=== PATIENT | male | born 1950 | race Hispanic/Latino ===

== ENCOUNTER 2019-11-20 15:19 | Inpatient (IN) | payer MEDICARE, OTHER ==
[2019-11-20] MEDS ORDERED: Ondansetron ODT 4 MG TAB PO PRN (18:46)
--- NOTE | 2019-11-20 19:15 | HP ---
HISTORY OF PRESENT ILLNESS: The patient is a 69-year-old male with long history of poorly-controlled diabetes, hypertension, hyperlipidemia, who has had a left BKA recently because of poorly healing diabetic ulcer with Staphylococcus bacteremia. He has been found to have methicillin-sensitive Staphylococcus, has been on cefazolin 2 g IV piggyback q.8 hours since surgery with last dose to be on November 23. The patient did well with therapy and was discharged to home to finish his course of IV Ancef, but was unable to do this and therefore was placed in the skilled unit for continued therapy and to finish his course of IV Ancef. PAST MEDICAL HISTORY: Positive as mentioned above. Type 2 diabetes, hypertension, hyperlipidemia, peripheral vascular disease. ALLERGIES: HE HAS HISTORY OF ALLERGY TO CLINDAMYCIN. MEDICATIONS: Include; 1. Levemir 25 units subcu daily. 2. Lisinopril 20 mg daily. 3. Gabapentin 300 mg three times daily. 4. MiraLAX 17 g daily. 5. Tramadol as needed. FAMILY MEDICAL HISTORY: Noncontributory. SOCIAL HISTORY: He is a nonsmoker, nondrinker. Lives with his family. REVIEW OF SYSTEMS: HEENT: He denies any headaches, dizziness, change in vision or hearing, or dysphagia. PULMONARY: Denies cough, sputum production, pneumonia, asthma, or tuberculosis. CARDIOVASCULAR: Denies chest pain, orthopnea, paroxysmal nocturnal dyspnea, or edema. GASTROINTESTINAL: Denies nausea, vomiting, diarrhea, constipation, or abdominal pain. GENITOURINARY: Denies dysuria, hematuria, or nocturia. MUSCULOSKELETAL: Denies extremity pain or swelling. NEUROLOGIC: Has numbness and tingling in his right foot with some pain. Left foot shows a well-healed left BKA, but with some . PHYSICAL EXAMINATION: GENERAL: The patient is an elderly male, in no acute distress. Oriented x3 and cooperative. VITAL SIGNS: Show him to have blood pressure 148/95, temperature is 98, pulse 88, respirations 18, O2 saturations 93% on room air. HEENT: There are dental caries. Oral mucous membranes are well hydrated. Pupils equal, round, and reactive to light and accommodation. NECK: Supple. No nodes or masses. LUNGS: Clear to auscultation and percussion with no rales, rhonchi, rubs or wheezes. CARDIAC: Showed regular rhythm with no gallops or murmurs. ABDOMEN: Soft and nontender with no masses or organomegaly. Good bowel sounds. SKIN/EXTREMITIES: Show left BKA healing well. Right foot shows good pedal pulses. Some healing superficial abrasions. LABORATORY DATA: Most recent laboratories showed a white count of 13,000, hemoglobin 7, hematocrit of 23. Creatinine 0.86, BUN 36. ASSESSMENT: 1. Status post methicillin-sensitive bacteremia on IV Ancef 2 g q.8 until November 25. 2. Peripheral vascular disease, status post left BKA with healing wound on tramadol for pain. 3. Degenerative disk disease, on Neurontin and tramadol. 4. Type 2 diabetes with only fair control with Accu-Cheks up to 200. 5. Hypertension, controlled to goal. PLAN: Continue medications of Ancef 2 g q.8, gabapentin 300 three times daily, Levemir 25 units daily, mild sliding scale, lisinopril 20 mg daily, tramadol 50 mg four times daily, MiraLAX 17 g daily. Continue wound care. Continue PT/OT. Job ID: [id number]
[2019-11-20] MEDS: Gabapentin 300 MG CAP PO SCH (21:15)
[2019-11-20] MEDS: CEFAZOLIN 1 GM in Sodium Chloride 0.9% 100 ML IVPB SCH ×2 (21:15→21:55)
[2019-11-20] MEDS ORDERED: Dextrose 50% Abboject 50 ML SYRINGE IVP PRN (21:18)
[2019-11-20] MEDS ORDERED: Dextrose 5% in Water 1,000 ML IV PRN (21:18)
[2019-11-20] MEDS: HumaLOG 300 UNITS/3 ML VIAL SC PRN (21:37)
[2019-11-20] MEDS: traMADol HCl 50 MG TAB PO PRN (21:39)
[2019-11-20] MEDS ORDERED: CEFAZOLIN 2 GM IVPB SCH (22:00)
[2019-11-21] MEDS: CEFAZOLIN 1 GM in Sodium Chloride 0.9% 100 ML IVPB SCH ×6 (05:09→22:07)
[2019-11-21] MEDS: HumaLOG 300 UNITS/3 ML VIAL SC PRN ×3 (05:12→18:16)
[2019-11-21 05:40] LABS: #Lymphocytes 1.2 thou/uL (1.20-3.40); #Monocytes 0.5 thou/uL (0.11-0.59); #Neutrophils 4.4 thou/uL (1.40-6.50); %Basophils 0.4 % (0.0-1.0); %Eosinophils 0.6 % (0.0-10.0); %Monocytes 8.1 % (0.0-10.0); %Neutrophils 71.9 % (42.0-75.0); Hemoglobin 8.3 g/dL (14.0-18.0); Mean Corpuscular HGB CONC 31.1 g/dL (32.0-36.0); Mean Corpuscular Hemoglobin 25.7 pg (27.0-31.0); Mean Corpuscular Volume 82.7 fL (78.0-98.0); Mean Platelet Volume 5.1 fL (7.4-10.4); Platelet Count 402 thou/uL (130-400); RBC Distribution Width 16.3 % (11.5-14.5); Red Blood Cell (RBC) Count 3.23 mill/uL (4.70-6.10); White Blood Cell (WBC) Count 6.1 thou/uL (4.8-10.8)
[2019-11-21 05:57] LABS: ALT (SGPT) Less than 6 U/L (8-55); AST (SGOT) 17 U/L (5-34); Albumin 2.4 g/dL (3.4-4.8); Alkaline Phosphatase 94 U/L (40-110); Anion Gap 12 mmol/L (10-20); BUN (Urea Nitrogen) 17 mg/dL (8.4-25.7); Bilirubin, Total 0.4 mg/dL (0.2-1.2); Calc. Creatinine Clearance 87 mL/min (70-130); Calcium 8.6 mg/dL (7.8-10.44); Carbon Dioxide 28 mmol/L (23-31); Chloride 100 mmol/L (98-107); Estimated GFR-MDRD Greater than 90; Globulin 5.1 g/dL (2.4-3.5); Glucose 151 mg/dL (80-115); Potassium 4.6 mmol/L (3.5-5.1); Protein, Total 7.5 g/dL (5.8-8.1); Sodium 135 mmol/L (136-145)
[2019-11-21] MEDS ORDERED: Lantus 1000 UNITS/10 ML VIAL SC SCH (09:00)
[2019-11-21] MEDS: Amlodipine 5 MG TAB PO SCH (09:17)
[2019-11-21] MEDS: Gabapentin 300 MG CAP PO SCH ×3 (09:18→21:28)
[2019-11-21] MEDS: Lisinopril 20 MG TAB PO SCH (09:18)
[2019-11-21] MEDS: Tamsulosin HCl 0.4 MG CAP PO SCH (09:19)
[2019-11-21] MEDS: Lidocaine 5% Patch TD SCH (09:19)
[2019-11-21] MEDS: traMADol HCl 50 MG TAB PO PRN (21:28)
[2019-11-21] MEDS: Lidocaine Patch Removal TOP SCH (21:31)
[2019-11-22] MEDS: HumaLOG 300 UNITS/3 ML VIAL SC PRN ×4 (05:08→21:29)
[2019-11-22] MEDS: CEFAZOLIN 1 GM in Sodium Chloride 0.9% 100 ML IVPB SCH ×6 (05:10→21:33)
[2019-11-22] MEDS: Lisinopril 20 MG TAB PO SCH (09:47)
[2019-11-22] MEDS: Tamsulosin HCl 0.4 MG CAP PO SCH (09:47)
[2019-11-22] MEDS: Amlodipine 5 MG TAB PO SCH (09:48)
[2019-11-22] MEDS: Gabapentin 300 MG CAP PO SCH ×3 (09:48→20:20)
[2019-11-22] MEDS: Lidocaine 5% Patch TD SCH (09:49)
[2019-11-22] MEDS: Lantus 1000 UNITS/10 ML VIAL SC SCH (09:49)
[2019-11-22] MEDS: Lidocaine Patch Removal TOP SCH (20:20)
[2019-11-23] MEDS: CEFAZOLIN 1 GM in Sodium Chloride 0.9% 100 ML IVPB SCH ×7 (05:51→21:17)
[2019-11-23] MEDS: traMADol HCl 50 MG TAB PO PRN (05:57)
[2019-11-23] MEDS: Amlodipine 5 MG TAB PO SCH (08:35)
[2019-11-23] MEDS: Gabapentin 300 MG CAP PO SCH ×3 (08:35→21:12)
[2019-11-23] MEDS: Lidocaine 5% Patch TD SCH (08:35)
[2019-11-23] MEDS: Tamsulosin HCl 0.4 MG CAP PO SCH (08:35)
[2019-11-23] MEDS: Lisinopril 20 MG TAB PO SCH (08:35)
[2019-11-23] MEDS: Lantus 1000 UNITS/10 ML VIAL SC SCH (08:36)
[2019-11-23] MEDS: HumaLOG 300 UNITS/3 ML VIAL SC PRN ×3 (11:45→21:56)
[2019-11-23] MEDS: Lidocaine Patch Removal TOP SCH (21:12)
[2019-11-24] MEDS: traMADol HCl 50 MG TAB PO PRN ×2 (04:13→13:40)
[2019-11-24] MEDS: CEFAZOLIN 1 GM in Sodium Chloride 0.9% 100 ML IVPB SCH ×6 (05:46→21:27)
[2019-11-24] MEDS: Amlodipine 5 MG TAB PO SCH (08:18)
[2019-11-24] MEDS: Gabapentin 300 MG CAP PO SCH ×3 (08:19→21:25)
[2019-11-24] MEDS: Lidocaine 5% Patch TD SCH (08:20)
[2019-11-24] MEDS: Lisinopril 20 MG TAB PO SCH (08:20)
[2019-11-24] MEDS: Tamsulosin HCl 0.4 MG CAP PO SCH (08:21)
[2019-11-24] MEDS ORDERED: Lantus 1000 UNITS/10 ML VIAL SC SCH (09:00)
[2019-11-24] MEDS: HumaLOG 300 UNITS/3 ML VIAL SC PRN ×3 (11:41→22:59)
--- NOTE | 2019-11-24 19:03 | PRG ---
DATE OF SERVICE: 11/23/2019 SUBJECTIVE: Patient feels well, sleeping in bed with no complaints, pain in his leg, shortness of breath, chest pain. OBJECTIVE: Shows Accu-Chek still elevated to greater than 300, but down to 130 in the morning. LUNGS: Clear. CARDIAC: Regular rhythm. ABDOMEN: Soft, nontender. SKIN/EXTREMITIES: Display healed left BKA. ASSESSMENT: 1. Healed left cqnxx-hgi-pjga amputation. We will remove nick today. 2. bacteremia. Tolerating Ancef 2 g every 8 hours until November 25. 3. Poorly controlled diabetes and we will titrate to control to goal with no hypoglycemia. Job ID: [id number]
--- NOTE | 2019-11-24 19:19 | PRG ---
DATE OF SERVICE: 11/22/2019 SUBJECTIVE: Patient is a 69-year-old white male with; 1. A history of methicillin-sensitive bacteremia, on IV Ancef until November 25 with inability to maintain this at home and therefore admitted to the skilled unit for continued antibiotics. 2. He has a history also of peripheral vascular disease with a healing wound on his left BKA with nick to be removed later this week. 3. Degenerative disk disease, chronic; on Neurontin and tramadol, stable. 4. Type 2 diabetes, only fair control, on Levemir 25 units daily and a mild sliding scale. OBJECTIVE: VITAL SIGNS: Show him to have temperature 99.5, pulse 91, respirations 20, O2 sats 94% on room air, blood pressure 115/60. SKIN/EXTREMITIES: Left BKA healing well. LUNGS: Clear. CARDIAC: Showed regular rhythm. LABORATORY DATA: Show Accu-Cheks elevated to greater than 200. ASSESSMENT: 1. Resolving methicillin-susceptible Staphylococcus aureus bacteremia, on IV Ancef until November 25. 2. Resolving left eifxw-xjs-ytox amputation with nick to be removed later this weekend. 3. Poorly controlled diabetes, on Lantus and we will titrate up from 15 units daily with sliding scale to control to goal as patient has had some hypoglycemia recently. Job ID: [id number]
[2019-11-24] MEDS: Lidocaine Patch Removal TOP SCH (21:30)
[2019-11-25] MEDS: CEFAZOLIN 1 GM in Sodium Chloride 0.9% 100 ML IVPB SCH ×6 (05:12→21:39)
[2019-11-25] MEDS: HumaLOG 300 UNITS/3 ML VIAL SC PRN ×2 (06:00→12:57)
--- NOTE | 2019-11-25 08:48 | PRG ---
DATE OF SERVICE: 11/25/2019 SUBJECTIVE: The patient feels well, lying in bed. He is approaching the end of his antibiotics on November 25 and has asked if he is ready to be discharged home, cooperating with therapy. He states in the affirmative. OBJECTIVE: VITAL SIGNS: Show his blood pressure to be 124/56, pulse 82, O2 saturations 95% on room air, blood pressure 117/64. LUNGS: Clear. CARDIAC: Shows regular rhythm. EXTREMITIES: Left BKA is healed well with nick removed. LABORATORY DATA: Showed Accu-Cheks still elevated to 240 in the afternoon, but down to 130 in the morning, and have increased Lantus to 20 units and we will monitor as he was taking 25 units previously before he became hypoglycemic. ASSESSMENT: 1. Resolving MSSA bacteremia, to finish IV Rocephin on November 25. 2. Healed left bmdxg-kpl-vblt amputation and will follow up with surgeon as an outpatient. 3. Poorly controlled diabetes with increasing control with increasing Lantus and we will increase to 20 units today and possibly 22 and 25 by discharge as he is not having any further hypoglycemia. Job ID: [id number]
[2019-11-25] MEDS ORDERED: Lantus 1000 UNITS/10 ML VIAL SC SCH ×2 (09:00)
[2019-11-25] MEDS: Amlodipine 5 MG TAB PO SCH (09:25)
[2019-11-25] MEDS: metFORMIN 500 MG TAB PO SCH (09:25)
[2019-11-25] MEDS: Gabapentin 300 MG CAP PO SCH ×3 (09:25→21:39)
[2019-11-25] MEDS: Lidocaine 5% Patch TD SCH (09:26)
[2019-11-25] MEDS: Lisinopril 20 MG TAB PO SCH (09:26)
[2019-11-25] MEDS: Tamsulosin HCl 0.4 MG CAP PO SCH (09:27)
[2019-11-25] MEDS: traMADol HCl 50 MG TAB PO PRN (09:31)
[2019-11-25] MEDS ORDERED: Sodium Chloride 0.9% 10 ML ONE (14:34)
[2019-11-25] MEDS: Lidocaine Patch Removal TOP SCH (21:41)
[2019-11-26] MEDS: CEFAZOLIN 1 GM in Sodium Chloride 0.9% 100 ML IVPB SCH ×6 (05:36→21:31)
[2019-11-26] MEDS: Lisinopril 20 MG TAB PO SCH (08:20)
[2019-11-26] MEDS: Amlodipine 5 MG TAB PO SCH (08:20)
[2019-11-26] MEDS: Lidocaine 5% Patch TD SCH (08:20)
[2019-11-26] MEDS: metFORMIN 500 MG TAB PO SCH (08:21)
[2019-11-26] MEDS: Gabapentin 300 MG CAP PO SCH ×3 (08:21→20:02)
[2019-11-26] MEDS: Tamsulosin HCl 0.4 MG CAP PO SCH (08:21)
[2019-11-26] MEDS: traMADol HCl 50 MG TAB PO PRN (08:23)
[2019-11-26] MEDS: Lantus 1000 UNITS/10 ML VIAL SC SCH (08:25)
[2019-11-26] MEDS: HumaLOG 300 UNITS/3 ML VIAL SC PRN ×2 (17:18→21:29)
[2019-11-26] MEDS: Lidocaine Patch Removal TOP SCH (20:02)
[2019-11-27] MEDS: CEFAZOLIN 1 GM in Sodium Chloride 0.9% 100 ML IVPB SCH ×2 (05:28→05:30)
[2019-11-27] MEDS: Lantus 1000 UNITS/10 ML VIAL SC SCH (08:46)
[2019-11-27] MEDS: Lidocaine 5% Patch TD SCH (08:46)
[2019-11-27] MEDS: Amlodipine 5 MG TAB PO SCH (08:47)
[2019-11-27] MEDS: Lisinopril 20 MG TAB PO SCH (08:47)
[2019-11-27] MEDS: Tamsulosin HCl 0.4 MG CAP PO SCH (08:47)
--- NOTE | 2019-11-27 08:47 | PRG ---
DATE OF SERVICE: 11/26/2019 SUBJECTIVE: The patient feels well, lying in bed. He has finished his antibiotics today and is ready for more therapy and wishes to continue on therapy. He does not wish to be discharged home at this time. Therapists have agreed that he is improving and will therefore continue on PT/OT. OBJECTIVE: VITAL SIGNS: Temperature is 97, pulse 89, respirations 20, O2 sats 98% on room air, and blood pressure 116/59. LABORATORY DATA: Accu-Cheks still showing elevations of 201 to 238 in the afternoon, although down to 91 in the morning on Levemir 25 units subcu daily. ASSESSMENT: 1. Resolving methicillin-susceptible Staphylococcus aureus bacteremia. 2. Slowly improving diabetic control. 3. Severe deconditioning. 4. Peripheral vascular disease, status post left below knee amputation. PLAN: 1. Continue PT/OT. 2. Finish Ancef today. 3. Start linagliptin tomorrow to help with postprandial diabetes control. Job ID: [id number]
[2019-11-27] MEDS: metFORMIN 500 MG TAB PO SCH (08:48)
[2019-11-27] MEDS: Gabapentin 300 MG CAP PO SCH ×3 (08:48→21:22)
[2019-11-27] MEDS: Alogliptin 25 MG TAB PO SCH (08:50)
[2019-11-27] MEDS: HumaLOG 300 UNITS/3 ML VIAL SC PRN (12:38)
[2019-11-27] MEDS: Lidocaine Patch Removal TOP SCH (21:22)
[2019-11-27] MEDS: traMADol HCl 50 MG TAB PO PRN (23:21)
[2019-11-28] MEDS ORDERED: Amlodipine 5 MG TAB ONE (08:46)
[2019-11-28] MEDS: Alogliptin 25 MG TAB PO SCH (09:47)
[2019-11-28] MEDS: Gabapentin 300 MG CAP PO SCH ×3 (09:48→20:55)
[2019-11-28] MEDS: Tamsulosin HCl 0.4 MG CAP PO SCH (09:48)
[2019-11-28] MEDS: Amlodipine 5 MG TAB PO SCH (09:48)
[2019-11-28] MEDS: metFORMIN 500 MG TAB PO SCH (09:48)
[2019-11-28] MEDS: Lisinopril 20 MG TAB PO SCH (09:49)
[2019-11-28] MEDS: Lantus 1000 UNITS/10 ML VIAL SC SCH (09:49)
[2019-11-28] MEDS: Lidocaine 5% Patch TD SCH (09:49)
--- NOTE | 2019-11-28 18:47 | PRG ---
DATE OF SERVICE: 11/28/2019 SUBJECTIVE: The patient was transferring from the chair to the bed, when he slipped, leaning back and required assistance with two people to get back in the bed. He had done much better this morning with transfers, but apparently became impulsive this afternoon. OBJECTIVE: VITAL SIGNS: Show Accu-Cheks controlled to goal at 79 to 128. Blood pressure is 105/57, temperature is 98, pulse 81, respirations 18, O2 sats 96% on room air. LUNGS: Clear. CARDIAC: Showed regular rhythm. ABDOMEN: Soft and nontender. SKIN AND EXTREMITIES: Display no edema, clubbing, or cyanosis, healed left BKA. ASSESSMENT: 1. Resolving left nkouc-sex-edtb amputation secondary to severe peripheral vascular disease. 2. Type 2 diabetes, controlled to goal. 3. Deconditioning, improved, was still not able to maintain ADLs. 4. Resolved methicillin-sensitive Staphylococcus aureus bacteremia, off medications. PLAN: 1. Continue PT/OT. 2. Continue Accu-Cheks to monitor and titrate and control diabetes. 3. Continue pain relief as needed. Job ID: [id number]
--- NOTE | 2019-11-28 18:50 | PRG ---
DATE OF SERVICE: 11/27/2019 SUBJECTIVE: The patient feels well. He has finished antibiotics. No fever or chills. Left BKA is healing well, however, he is still concerned maintain ADLs, and Physical and Occupational Therapy agrees that he needs more therapy. OBJECTIVE: VITAL SIGNS: Temperature 98.3, pulse 93, respirations 18, O2 saturations 97% on room air, blood pressure 118/58. LUNGS: Clear. CARDIAC: Showed regular rhythm. ABDOMEN: Soft, nontender. Left BKA healed well. SKIN/EXTREMITIES: Show no edema, clubbing, or cyanosis. ASSESSMENT AND PLAN: 1. Resolved methicillin-sensitive Staphylococcus aureus bacteremia. 2. Severe deconditioning, improving. 3. Peripheral vascular disease, status post left BKA. 4. Type 2 diabetes, controlled to goal. Job ID: [id number]
[2019-11-28] MEDS: Lidocaine Patch Removal TOP SCH (20:55)
--- NOTE | 2019-11-29 07:17 | PRG ---
DATE OF SERVICE: 11/29/2019 SUBJECTIVE: Mr. Rangel is resting in bed. He is eating a snack, since he felt like his blood sugar was low. He is happy with his progress. OBJECTIVE: VITAL SIGNS: He is afebrile. Heart rate 85, respirations 20, oxygen saturation 94% on room air, and blood pressure 124/81. CARDIOVASCULAR SYSTEM: S1, S2 plus. RESPIRATORY SYSTEM: Normal vestibular breath sounds. ABDOMEN: Soft, nontender. Bowel sounds heard in all quadrants. EXTREMITIES: Without cyanosis or clubbing. Left BKA. IMPRESSION: 1. Diabetes mellitus, type 2. 2. Left dfodi-uqe-atnb amputation due to severe peripheral vascular disease. 3. Improving deconditioning. 4. Resolved methicillin-resistant Staphylococcus aureus bacteremia. 5. Hypertension. 6. Peripheral neuropathy. PLAN: 1. Continue current medications. 2. 1800-calorie heart healthy ADA diet. 3. Accu-Cheks with sliding scale coverage. 4. Stump care. 5. DVT and stress ulcer prophylaxis. 6. Decubitus precautions. 7. Physical therapy. 8. Routine laboratory values. Job ID: [id number]
[2019-11-29] MEDS: Alogliptin 25 MG TAB PO SCH (08:42)
[2019-11-29] MEDS: metFORMIN 500 MG TAB PO SCH (08:42)
[2019-11-29] MEDS: Gabapentin 300 MG CAP PO SCH ×3 (08:43→20:43)
[2019-11-29] MEDS: Amlodipine 5 MG TAB PO SCH (08:43)
[2019-11-29] MEDS: Lantus 1000 UNITS/10 ML VIAL SC SCH (08:43)
[2019-11-29] MEDS: Lidocaine 5% Patch TD SCH (08:43)
[2019-11-29] MEDS: Tamsulosin HCl 0.4 MG CAP PO SCH (08:44)
[2019-11-29] MEDS: Lisinopril 20 MG TAB PO SCH (08:44)
[2019-11-29] MEDS: Lidocaine Patch Removal TOP SCH (20:43)
[2019-11-30 05:20] VITALS: BMI 21.7
[2019-11-30] MEDS: Amlodipine 5 MG TAB PO SCH (08:33)
[2019-11-30] MEDS: Gabapentin 300 MG CAP PO SCH ×3 (08:33→21:18)
[2019-11-30] MEDS: Lidocaine 5% Patch TD SCH (08:33)
[2019-11-30] MEDS: metFORMIN 500 MG TAB PO SCH (08:34)
[2019-11-30] MEDS: Lantus 1000 UNITS/10 ML VIAL SC SCH (08:34)
[2019-11-30] MEDS: Alogliptin 25 MG TAB PO SCH (08:34)
[2019-11-30] MEDS: Tamsulosin HCl 0.4 MG CAP PO SCH (08:35)
[2019-11-30] MEDS: Lisinopril 20 MG TAB PO SCH (08:35)
--- NOTE | 2019-11-30 13:54 | PRG ---
DATE OF SERVICE: 11/30/2019 SUBJECTIVE: Mr. Rangel is resting in bed. He is happy with his progress. He denies any concerns or questions. No family at bedside. OBJECTIVE: VITAL SIGNS: He is afebrile. Heart rate 88, respirations 20, oxygen saturation 95% on room air, blood pressure 128/71. CARDIOVASCULAR: S1 and S2 plus. RESPIRATORY: Normal vesicular breath sounds. ABDOMEN: Soft and nontender. Bowel sounds heard in all quadrants. EXTREMITIES: Without cyanosis or clubbing. Left BKA. CENTRAL NERVOUS SYSTEM: Improving deconditioning. IMPRESSION: 1. Diabetes mellitus, type 2. 2. Left below-knee amputation. 3. Deconditioning. 4. Hypertension. 5. Peripheral neuropathy. PLAN: 1. Continue current medications. 2. 1800-calorie heart healthy ADA diet. 3. Accu-Cheks with sliding scale coverage. 4. Stump care. 5. DVT and stress ulcer prophylaxis. 6. Decubitus precaution. 7. Physical therapy. 8. Routine laboratory values. 9. Dr. Milena carmona. Job ID: [id number]
[2019-11-30] MEDS: Lidocaine Patch Removal TOP SCH (21:18)
[2019-12-01] MEDS: Lantus 1000 UNITS/10 ML VIAL SC SCH (08:34)
[2019-12-01] MEDS: Tamsulosin HCl 0.4 MG CAP PO SCH (08:35)
[2019-12-01] MEDS: metFORMIN 500 MG TAB PO SCH (08:35)
[2019-12-01] MEDS: Alogliptin 25 MG TAB PO SCH (08:35)
[2019-12-01] MEDS: Gabapentin 300 MG CAP PO SCH ×3 (08:35→20:38)
[2019-12-01] MEDS: Amlodipine 5 MG TAB PO SCH (08:35)
[2019-12-01] MEDS: Lisinopril 20 MG TAB PO SCH (08:35)
[2019-12-01] MEDS: Lidocaine 5% Patch TD SCH (08:35)
[2019-12-01] MEDS: HumaLOG 300 UNITS/3 ML VIAL SC PRN ×3 (12:34→21:35)
[2019-12-01] MEDS: traMADol HCl 50 MG TAB PO PRN (15:40)
[2019-12-01] MEDS: Lidocaine Patch Removal TOP SCH (20:39)
--- NOTE | 2019-12-02 06:41 | PRG ---
DATE OF SERVICE: 12/01/2019 SUBJECTIVE: The patient is lying in the bed, feels well. He states that he has been cooperating with therapy, having minimal pain in his legs, still very weak. OBJECTIVE: VITAL SIGNS: Temperature is 98.9, pulse 91, respirations 20, O2 sats 97% on room air, blood pressure is 108/65. LUNGS: Clear. CARDIAC: Showed regular rhythm. ABDOMEN: Soft and nontender. SKIN/EXTREMITIES: Display healed left BKA ASSESSMENT: 1. Resolving left below knee amputation. 2. Severe peripheral vascular disease, stable. 3. Type-2 diabetes, controlled to goal. 4. Severe deconditioning. 5. Hypertension, controlled to goal. PLAN: 1. Continue PT, OT. 2. Discuss discharge planning with PT, OT. 3. Continue Accu-Cheks to monitor and titrate and control diabetes. 4. Continue to monitor vital signs with therapy. 5. Discontinue PICC line. Job ID: [id number]
[2019-12-02] MEDS: Alogliptin 25 MG TAB PO SCH (08:26)
[2019-12-02] MEDS: Tamsulosin HCl 0.4 MG CAP PO SCH (08:26)
[2019-12-02] MEDS: Amlodipine 5 MG TAB PO SCH (08:26)
[2019-12-02] MEDS: Lisinopril 20 MG TAB PO SCH (08:26)
[2019-12-02] MEDS: metFORMIN 500 MG TAB PO SCH (08:26)
[2019-12-02] MEDS: Lantus 1000 UNITS/10 ML VIAL SC SCH (08:27)
[2019-12-02] MEDS: Gabapentin 300 MG CAP PO SCH ×3 (08:27→20:48)
[2019-12-02] MEDS: Lidocaine 5% Patch TD SCH (08:27)
[2019-12-02] MEDS: traMADol HCl 50 MG TAB PO PRN (08:28)
[2019-12-02] MEDS: HumaLOG 300 UNITS/3 ML VIAL SC PRN ×2 (12:02→17:34)
[2019-12-02] MEDS: Lidocaine Patch Removal TOP SCH (21:52)
--- NOTE | 2019-12-03 06:57 | PRG ---
DATE OF SERVICE: 12/02/2019 SUBJECTIVE: The patient feels well, lying in bed, but is working with therapy, was still having significant pain in his hip with spasms, right knee pain with therapy. Occupational Therapy also states he has some problems with cognition and incontinence and unaware of his incontinent state. OBJECTIVE: VITAL SIGNS: Show pulse 85, respirations 18, O2 saturations 97% on room air, blood pressure 111/61. Accu-Cheks 127 to 199. EXTREMITIES: Left BKA has healed well. LUNGS: Clear. CARDIAC: Showed regular rhythm. ASSESSMENT: 1. Resolving left BKA with MSSA bacteremia, status post full course of Ancef and no evidence of recurrence off antibiotics. 2. Persistent deconditioning, inability to maintain ADLs. Working with PT and OT and we will continue to follow with them. 3. Type 2 diabetes, controlled to goal with Accu-Cheks less than 200. 4. Some cognitive deficits and we will discuss with family about 24 hours assistance. Job ID: [id number]
[2019-12-03] MEDS: Tamsulosin HCl 0.4 MG CAP PO SCH (08:30)
[2019-12-03] MEDS: Gabapentin 300 MG CAP PO SCH ×3 (08:30→20:17)
[2019-12-03] MEDS: Alogliptin 25 MG TAB PO SCH (08:30)
[2019-12-03] MEDS: metFORMIN 500 MG TAB PO SCH (08:30)
[2019-12-03] MEDS: Amlodipine 5 MG TAB PO SCH (08:30)
[2019-12-03] MEDS: Lantus 1000 UNITS/10 ML VIAL SC SCH (08:31)
[2019-12-03] MEDS: Lidocaine 5% Patch TD SCH (08:31)
[2019-12-03] MEDS: Lisinopril 20 MG TAB PO SCH (08:31)
[2019-12-03] MEDS: HumaLOG 300 UNITS/3 ML VIAL SC PRN ×3 (12:29→21:49)
[2019-12-03] MEDS: Lidocaine Patch Removal TOP SCH (20:18)
[2019-12-03 21:07] LABS: Hemoglobin 7.1 g/dL (14.0-18.0); Mean Corpuscular HGB CONC 31.1 g/dL (32.0-36.0); Mean Corpuscular Hemoglobin 25.2 pg (27.0-31.0); Mean Corpuscular Volume 80.9 fL (78.0-98.0); Mean Platelet Volume 5.5 fL (7.4-10.4); Platelet Count 345 thou/uL (130-400); RBC Distribution Width 15.9 % (11.5-14.5); Red Blood Cell (RBC) Count 2.82 mill/uL (4.70-6.10); White Blood Cell (WBC) Count 8.9 thou/uL (4.8-10.8)
[2019-12-03 21:08] LABS: Lactic Acid 1.6 mmol/L (0.5-2.2)
[2019-12-03 21:09] LABS: Lymphocytes 10 % (21-51); Neutrophil 84 % (42-75)
[2019-12-03 21:10] LABS: Eosinophils 0 % (0-10); Monocytes 5 % (0-10)
[2019-12-03] MEDS: Acetaminophen 325 MG TAB PO PRN (21:27)
[2019-12-04] MEDS: metFORMIN 500 MG TAB PO SCH (08:26)
[2019-12-04] MEDS: Alogliptin 25 MG TAB PO SCH (08:27)
[2019-12-04] MEDS: Gabapentin 300 MG CAP PO SCH ×3 (08:27→21:28)
[2019-12-04] MEDS: Amlodipine 5 MG TAB PO SCH (08:27)
[2019-12-04] MEDS: Lantus 1000 UNITS/10 ML VIAL SC SCH (08:27)
[2019-12-04] MEDS: Lidocaine 5% Patch TD SCH (08:28)
[2019-12-04] MEDS: Tamsulosin HCl 0.4 MG CAP PO SCH (08:28)
[2019-12-04] MEDS: Lisinopril 20 MG TAB PO SCH (08:28)
[2019-12-04] MEDS ORDERED: Lidocaine 1% (PF) 30 ML VIAL ONE (09:00)
[2019-12-04] MEDS: HumaLOG 300 UNITS/3 ML VIAL SC PRN (17:03)
[2019-12-04] MEDS: Lidocaine Patch Removal TOP SCH (21:28)
[2019-12-05] MEDS: Acetaminophen 325 MG TAB PO PRN (03:52)
[2019-12-05] MEDS ORDERED: Bacteriostatic Water 30 ML VIAL FS PRN (05:41)
[2019-12-05] MEDS ORDERED: methylPREDNISolone Acetate 40 mg/ml Vial I-ARTICULR SCH (05:45)
--- NOTE | 2019-12-05 06:13 | PRG ---
DATE OF SERVICE: 12/03/2019 SUBJECTIVE: The patient feels well, lying in the bed, cooperating with therapy. He is having more problems with his right leg but no symptoms with his left BKA. He has had no fever, chills, off antibiotics. His Accu-Cheks have been controlled, but he is wishing to have more therapy prior to being discharged home. He is complaining mainly of pain in his right knee, which he is of course doing all of the weightbearing, when he transfers. OBJECTIVE: VITAL SIGNS: Shows temperature was 100.6, pulse 91, respirations 18, O2 saturations 95% on room air, and blood pressure is 115/61. EXTREMITIES: Right leg did show some erythema, decreased pedal pulse, but appears to be stable. Right knee is significantly tender. LUNGS: Clear. CARDIAC: Regular rhythm. ABDOMEN: Soft and nontender. LABORATORY DATA: Accu-Cheks have been stable, 109 to 199. Lactate has returned to normal at 1.6. ASSESSMENT: 1. Persistent pain in right leg, most likely due to severe ischemia, appears to have signs of poor circulation in right leg chronically, but does have low-grade fever. We will monitor closely. Has finished his IV antibiotics for his methicillin-sensitive bacteremia. 2. Severe degenerative joint disease of right knee and will consider steroid injection. The patient agrees. 3. Healing left below knee amputation with no evidence of infection. 4. Fair control of diabetes in the hospital with dietary and insulin compliance. 5. Some cognitive deficits making him at risk for care for himself at home alone. PLAN: 1. Continue PT/OT. 2. Discuss care with family. 3. Schedule steroid injection, right knee. 4. Continue Accu-Cheks to monitor and titrate and control diabetes. Job ID: [id number]
--- NOTE | 2019-12-05 06:47 | PRG ---
DATE OF SERVICE: 12/04/2019 SUBJECTIVE: The patient feels well with persistent pain in the right knee. No pain in the right foot or leg. He has developed a stage II decubitus on the right heel. He has been eating well, tolerating diet well, attempting to work with Therapy, and is asking about discharge if he can get some relief of pain in his knee. OBJECTIVE: Shows VITAL SIGNS: The patient has been afebrile. Temperature 98.3, pulse 89, respirations 18, O2 saturations 96% on room air, blood pressure 119/64. LUNGS: Clear. CARDIAC: Shows regular rhythm. ABDOMEN: Soft and nontender. EXTREMITIES: Right knee shows significant crepitance. No effusion. Right leg shows signs of ischemia with decreased blood flow and some atrophy of the skin, but no evidence of infection, but there is a stage II decubitus on the right heel. LABORATORY DATA: Accu-Cheks show 115 to 193. ASSESSMENT AND PLAN: 1. Fair control of diabetes. 2. Resolved methicillin-sensitive bacteremia. We will obtain blood culture to document eradication for discharge. 3. Severe peripheral vascular disease of right leg with stage II heel decubitus and absent or decreased pedal pulses. 4. Severe degenerative joint disease of right knee. We will attempt steroid injection tomorrow to see if it relieves pain. Job ID: [id number]
[2019-12-05] MEDS: Lidocaine 5% Patch TD SCH (08:37)
[2019-12-05] MEDS: Lantus 1000 UNITS/10 ML VIAL SC SCH (08:37)
[2019-12-05] MEDS: metFORMIN 500 MG TAB PO SCH (08:38)
[2019-12-05] MEDS: Amlodipine 5 MG TAB PO SCH (08:38)
[2019-12-05] MEDS: Gabapentin 300 MG CAP PO SCH ×3 (08:38→20:47)
[2019-12-05] MEDS: Alogliptin 25 MG TAB PO SCH (08:38)
[2019-12-05] MEDS: Tamsulosin HCl 0.4 MG CAP PO SCH (08:38)
[2019-12-05] MEDS: Lisinopril 20 MG TAB PO SCH (08:38)
[2019-12-05] MEDS ORDERED: methylPREDNISolone Acetate 40 mg/ml Vial ONE (13:02)
[2019-12-05] MEDS ORDERED: Water For Inject, Bacteriostat 0 ML ONE (13:02)
[2019-12-05] MEDS ORDERED: Lidocaine 1% PF 5 ML VIAL FS SCH (13:30)
[2019-12-05] MEDS: HumaLOG 300 UNITS/3 ML VIAL SC PRN ×2 (16:57→21:24)
[2019-12-05] MEDS: traMADol HCl 50 MG TAB PO PRN (20:47)
[2019-12-05] MEDS: Lidocaine Patch Removal TOP SCH (20:49)
[2019-12-06] MEDS: HumaLOG 300 UNITS/3 ML VIAL SC PRN ×3 (05:13→21:56)
--- NOTE | 2019-12-06 07:22 | PRG ---
DATE OF SERVICE: 12/05/2019 SUBJECTIVE: The patient feels well except for pain in his right knee. Right heel appears to be stabilizing. No pain. No drainage. Right knee shows significant crepitus and stiffness, however. OBJECTIVE: VITAL SIGNS: Shows temperature is 98.9, pulse 87, respirations 20, O2 sats 97% on room air. Blood pressure 115/59. ABDOMEN: Soft and nontender. LABORATORY DATA: Shows Accu-Cheks ranged from 92 to 173, left BKA has healed well. ASSESSMENT: 1. Degenerative joint disease of the right knee, significant tenderness and limitation of ex-capabilities. 2. Severe peripheral vascular disease, status post left below knee amputation and now with ischemia of right leg with no evidence of gangrene or infection. 3. Stage II decubitus of right heel, offloading. Monitoring closely. 4. Type 2 diabetes, controlled to goal. PLAN: 1. Under sterile conditions, inject right knee in the infrapatellar space with 40 mg of Depo-Medrol and 2 mL of 1% lidocaine without epinephrine done without complications. 2. Continue to monitor stage II decubitus of the heel. 3. Continue Accu-Cheks to monitor and titrate and control diabetes. 4. Continue PT/OT. 5. Discussed discharge planning with the patient and family. Job ID: [id number]
[2019-12-06] MEDS: Lantus 1000 UNITS/10 ML VIAL SC SCH (08:58)
[2019-12-06] MEDS: Lidocaine 5% Patch TD SCH (08:58)
[2019-12-06] MEDS: Lisinopril 20 MG TAB PO SCH (08:59)
[2019-12-06] MEDS: Amlodipine 5 MG TAB PO SCH (08:59)
[2019-12-06] MEDS: metFORMIN 500 MG TAB PO SCH (08:59)
[2019-12-06] MEDS: Alogliptin 25 MG TAB PO SCH (08:59)
[2019-12-06] MEDS: Gabapentin 300 MG CAP PO SCH ×3 (09:00→20:18)
[2019-12-06] MEDS: Tamsulosin HCl 0.4 MG CAP PO SCH (09:00)
[2019-12-06] MEDS: Lidocaine Patch Removal TOP SCH (20:19)
[2019-12-06] MEDS: traMADol HCl 50 MG TAB PO PRN (20:21)
--- NOTE | 2019-12-07 09:25 | PRG ---
DATE OF SERVICE: 12/06/2019 SUBJECTIVE: The patient is lying in bed, states that his knee feels somewhat better, but has not been up out of the bed moving. He states his foot also feels better. He is contemplating therapy on Sunday to determine if he can go home. OBJECTIVE: VITAL SIGNS: Show temperature 96, pulse 73, respirations 18, O2 sats 97% on room air, and blood pressure 128/69. LUNGS: Clear. CARDIAC: Shows regular rhythm. ABDOMEN: Soft and nontender. ASSESSMENT: 1. Resolved methicillin-susceptible Staphylococcus aureus bacteremia. 2. Stable degenerative joint disease, right knee. 3. Severe PVD, status post left BKA, healed well with persistent ischemia of the right foot with abrasion, healing well. PLAN: 1. Continue PT/OT. 2. Discuss discharge planning with family and the patient. Job ID: [id number]
[2019-12-07] MEDS: Tamsulosin HCl 0.4 MG CAP PO SCH (09:48)
[2019-12-07] MEDS: Lidocaine 5% Patch TD SCH (09:48)
[2019-12-07] MEDS: Gabapentin 300 MG CAP PO SCH ×3 (09:48→20:44)
[2019-12-07] MEDS: Lantus 1000 UNITS/10 ML VIAL SC SCH (09:48)
[2019-12-07] MEDS: Alogliptin 25 MG TAB PO SCH (09:48)
[2019-12-07] MEDS: metFORMIN 500 MG TAB PO SCH (09:48)
[2019-12-07] MEDS: Lisinopril 20 MG TAB PO SCH (09:48)
[2019-12-07] MEDS: Amlodipine 5 MG TAB PO SCH (09:48)
[2019-12-07] MEDS: HumaLOG 300 UNITS/3 ML VIAL SC PRN (12:36)
[2019-12-07] MEDS: Lidocaine Patch Removal TOP SCH (20:44)
[2019-12-08] MEDS: metFORMIN 500 MG TAB PO SCH (08:48)
[2019-12-08] MEDS: Amlodipine 5 MG TAB PO SCH (08:48)
[2019-12-08] MEDS: Alogliptin 25 MG TAB PO SCH (08:48)
[2019-12-08] MEDS: Lisinopril 20 MG TAB PO SCH (08:49)
[2019-12-08] MEDS: Lantus 1000 UNITS/10 ML VIAL SC SCH (08:49)
[2019-12-08] MEDS: Lidocaine 5% Patch TD SCH (08:49)
[2019-12-08] MEDS: Gabapentin 300 MG CAP PO SCH ×3 (08:49→20:41)
[2019-12-08] MEDS: Tamsulosin HCl 0.4 MG CAP PO SCH (08:50)
[2019-12-08] MEDS: Acetaminophen 325 MG TAB PO PRN ×2 (08:51→14:01)
[2019-12-08] MEDS: traMADol HCl 50 MG TAB PO PRN (08:51)
--- NOTE | 2019-12-08 09:31 | PRG ---
DATE OF SERVICE: 12/07/2019 SUBJECTIVE: The patient feels better. Still having pain in his knee, but it is less and we will attempt therapy tomorrow. We will discuss with therapy tomorrow. OBJECTIVE: VITAL SIGNS: Shows temperature 99.6, pulse 90, respirations 18, O2 sat is 95% on room air, blood pressure 111/56. GENERAL: Blood culture is showing no growth. LUNGS: Clear. CARDIAC: Showed regular rhythm. EXTREMITIES: Right knee still shows crepitus and tenderness, but is able to move more without significant pain. Right lateral foot shows healing abrasion. ASSESSMENT: 1. Severe peripheral vascular disease status post left below-knee amputation, healed well. 2. Methicillin-sensitive Staphylococcus bacteremia, resolved. 3. Severe degenerative joint disease of right knee status post steroid injection with persistent symptoms. 4. Type 2 diabetes, controlled to goal. PLAN: Discuss discharge planning with PT, OT. Continue Accu-Cheks to monitor and titrate and control diabetes. Continue offloading of right heel. Continue lidocaine patch to knee. Job ID: [id number]
[2019-12-08] MEDS: HumaLOG 300 UNITS/3 ML VIAL SC PRN (20:41)
[2019-12-08] MEDS: Lidocaine Patch Removal TOP SCH (21:00)
[2019-12-09] MEDS: metFORMIN 500 MG TAB PO SCH (08:21)
[2019-12-09] MEDS: Lantus 1000 UNITS/10 ML VIAL SC SCH (08:22)
[2019-12-09] MEDS: Amlodipine 5 MG TAB PO SCH (08:22)
[2019-12-09] MEDS: Alogliptin 25 MG TAB PO SCH (08:22)
[2019-12-09] MEDS: Gabapentin 300 MG CAP PO SCH ×3 (08:22→21:44)
[2019-12-09] MEDS: Lidocaine 5% Patch TD SCH (08:23)
[2019-12-09] MEDS: Lisinopril 20 MG TAB PO SCH (08:23)
[2019-12-09] MEDS: Tamsulosin HCl 0.4 MG CAP PO SCH (08:23)
[2019-12-09] MEDS: traMADol HCl 50 MG TAB PO PRN ×2 (08:23→21:43)
[2019-12-09] MEDS: Acetaminophen 325 MG TAB PO PRN ×2 (08:24→21:44)
[2019-12-09] MEDS: Lidocaine Patch Removal TOP SCH (21:44)
[2019-12-09] MEDS: HumaLOG 300 UNITS/3 ML VIAL SC PRN (21:45)
--- NOTE | 2019-12-10 06:31 | PRG ---
DATE OF SERVICE: 12/09/2019 SUBJECTIVE: The patient feels well. I discussed with his son about his discharge planning and states that he agrees he will go to [facility] to continue PT until he is able to care for himself alone at home. OBJECTIVE: VITAL SIGNS: Temperature is 99, pulse 78, respirations 18, O2 sats 96% on room air, blood pressure is 110/67. Accu-Cheks controlled to goal, less than 150. LUNGS: Clear. CARDIAC: Regular rhythm. EXTREMITIES: Right knee shows crepitus and stiffness. Right foot shows decreased but present pedal pulses with healing abrasion. PLAN: 1. Continue PT, OT. 2. Continue dry dressing on abrasion. 3. Continue Accu-Cheks to monitor and titrate and control diabetes. 4. Discuss discharge planning with [facility]. 5. Obtain CBC and comprehensive metabolic profile in the a.m. Job ID: [id number]
[2019-12-10 06:44] LABS: ALT (SGPT) 21 U/L (8-55); AST (SGOT) 19 U/L (5-34); Albumin 2.4 g/dL (3.4-4.8); Alkaline Phosphatase 86 U/L (40-110); Anion Gap 11 mmol/L (10-20); BUN (Urea Nitrogen) 17 mg/dL (8.4-25.7); Bilirubin, Total 0.3 mg/dL (0.2-1.2); Calc. Creatinine Clearance 90 mL/min (70-130); Calcium 8.8 mg/dL (7.8-10.44); Carbon Dioxide 30 mmol/L (23-31); Chloride 100 mmol/L (98-107); Estimated GFR-MDRD Greater than 90; Glucose 88 mg/dL (80-115); Potassium 4.7 mmol/L (3.5-5.1); Protein, Total 7.4 g/dL (5.8-8.1); Sodium 136 mmol/L (136-145)
--- NOTE | 2019-12-10 06:52 | PRG ---
DATE OF SERVICE: 12/08/2019 SUBJECTIVE: The patient feels well, lying in bed, but does have still pain in his right leg on ambulation and movement of his knee despite steroid injection. Therapy has felt that he is unsafe for transfer to a wheelchair and unsafe to be alone. OBJECTIVE: VITAL SIGNS: Temperature is 97, pulse 80, respirations 20, O2 saturation 96% on room air, and blood pressure 106/59. LUNGS: Clear. CARDIAC: Shows regular rhythm. ABDOMEN: Soft and nontender. SKIN/EXTREMITIES: Display decreased pedal pulses. Well healed left BKA. There is an abrasion open wound on his right foot appears to be healing, not infected. ASSESSMENT: 1. Severe peripheral vascular disease status post left below-knee amputation. 2. Methicillin-sensitive bacteremia, resolved. 3. Osteoarthritis of right knee, limiting ambulation. 4. Hypertension, controlled to goal. 5. Diabetes type 2, controlled to goal. 6. Anemia of chronic disease. 7. Severe deconditioning with minimal improvement. PLAN: Continue PT, OT. Discuss discharge planning with family who wishes him to go to [facility], and we will work on this. Job ID: [id number]
[2019-12-10 07:12] LABS: #Eosinphils 0.1 thou/uL (0.0-0.7); #Lymphocytes 1.4 thou/uL (1.20-3.40); #Monocytes 0.5 thou/uL (0.11-0.59); #Neutrophils 5.2 thou/uL (1.40-6.50); %Basophils 0.3 % (0.0-1.0); %Eosinophils 0.8 % (0.0-10.0); %Lymphocytes 19.5 % (21.0-51.0); %Monocytes 7.4 % (0.0-10.0); Hemoglobin 7.1 g/dL (14.0-18.0); Mean Corpuscular HGB CONC 29.8 g/dL (32.0-36.0); Mean Corpuscular Hemoglobin 24.4 pg (27.0-31.0); Mean Corpuscular Volume 81.7 fL (78.0-98.0); Mean Platelet Volume 5.5 fL (7.4-10.4); Platelet Count 381 thou/uL (130-400); RBC Distribution Width 16.2 % (11.5-14.5); Red Blood Cell (RBC) Count 2.91 mill/uL (4.70-6.10); White Blood Cell (WBC) Count 7.2 thou/uL (4.8-10.8)
[2019-12-10 07:18] LABS: Anisocytosis SLIGHT = 6-15 cells (100X) (0-5/hpf); Hypochromia SLIGHT = 6-15 cells (100X) (0-5/hpf); MDiff Complete? YES; Platelet Morphology Comment Appears Adequate
[2019-12-10] MEDS: Lidocaine 5% Patch TD SCH (08:52)
[2019-12-10] MEDS: metFORMIN 500 MG TAB PO SCH (08:52)
[2019-12-10] MEDS: Lantus 1000 UNITS/10 ML VIAL SC SCH (08:52)
[2019-12-10] MEDS: Lisinopril 20 MG TAB PO SCH (08:53)
[2019-12-10] MEDS: Alogliptin 25 MG TAB PO SCH (08:53)
[2019-12-10] MEDS: Tamsulosin HCl 0.4 MG CAP PO SCH (08:53)
[2019-12-10] MEDS: Gabapentin 300 MG CAP PO SCH ×3 (08:53→20:30)
[2019-12-10] MEDS: Amlodipine 5 MG TAB PO SCH (08:53)
[2019-12-10] MEDS: HumaLOG 300 UNITS/3 ML VIAL SC PRN ×3 (12:36→20:29)
[2019-12-10] MEDS: Lidocaine Patch Removal TOP SCH (21:56)
[2019-12-10 21:58] LABS: Ferritin 724.8 ng/mL (22-322)
[2019-12-11] MEDS: traMADol HCl 50 MG TAB PO PRN (08:55)
[2019-12-11] MEDS: Lidocaine 5% Patch TD SCH (08:55)
[2019-12-11] MEDS: Lantus 1000 UNITS/10 ML VIAL SC SCH (08:56)
[2019-12-11] MEDS: Amlodipine 5 MG TAB PO SCH (08:57)
[2019-12-11] MEDS: Gabapentin 300 MG CAP PO SCH ×3 (08:57→21:14)
[2019-12-11] MEDS: Alogliptin 25 MG TAB PO SCH (08:57)
[2019-12-11] MEDS: Lisinopril 20 MG TAB PO SCH (08:57)
[2019-12-11] MEDS: Tamsulosin HCl 0.4 MG CAP PO SCH (08:57)
[2019-12-11] MEDS: metFORMIN 500 MG TAB PO SCH (08:57)
[2019-12-11 11:29] LABS: SARS-CoV-2 MS2 Positive; SARS-CoV-2 N Gene Negative; SARS-CoV-2 S Gene Negative; SARS-CoV-2 orf1ab Negative
[2019-12-11] MEDS: HumaLOG 300 UNITS/3 ML VIAL SC PRN ×2 (12:04→21:25)
[2019-12-11] MEDS: Lidocaine Patch Removal TOP SCH (21:14)
[2019-12-12 08:10] VITALS: BP 100/59; TEMP 96.3
[2019-12-12] MEDS: Lisinopril 20 MG TAB PO SCH (08:47)
[2019-12-12] MEDS: Tamsulosin HCl 0.4 MG CAP PO SCH (08:47)
[2019-12-12] MEDS: Alogliptin 25 MG TAB PO SCH (08:48)
[2019-12-12] MEDS: metFORMIN 500 MG TAB PO SCH (08:48)
[2019-12-12] MEDS: Gabapentin 300 MG CAP PO SCH (08:48)
[2019-12-12] MEDS: Amlodipine 5 MG TAB PO SCH (08:49)
[2019-12-12] MEDS: Lantus 1000 UNITS/10 ML VIAL SC SCH (08:50)
[2019-12-12] MEDS: traMADol HCl 50 MG TAB PO PRN (08:56)
[2019-12-12] MEDS: Acetaminophen 325 MG TAB PO PRN (08:56)
[2019-12-12] MEDS: Lidocaine 5% Patch TD SCH (09:00)
--- NOTE | 2019-12-16 00:24 | PQF ---
Juan Carlos AddisonABBY Guillen MD [id number] CLINICAL DOCUMENTATION CLARIFICATION FORM: POST DISCHARGE Addendum to original discharge summary date: ____ Late entry note date: __ DATE: 12/16/2019 ATTN:ABBY ROSALES MD Please exercise your independent, professional judgment in responding to the clarification form. Clinical indicators are provided on the bottom of this form for your review Please check appropriate box(s): [ ] Bacteremia due to Diabetic foot ulcer [ ] Bacteremia due to PVD [ ] Other diagnosis [ ] Unable to determine CLINICAL INDICATORS - SIGNS / SYMPTOMS / LABS - Left BKA recently because of poorly healing diabetic ulcer with staphylococcus bacteremia- H&P, 11/20, ABBY ROSALES MD - Status post methicillin-sensitive bacteremia on Iv Ancef 2g- H&P, 11/20, ABBY ROSALES MD - Severe peripheral vascular disease s/p left below knee amputation- Progress note, 12/07, ABBY ROSALES MD - Resolving MSSA- Progress note, 12/07, ABBY ROSALES MD RISK FACTORS - Diabetes type 2- Progress note, 12/07, ABBY ROSALES MD - s/p BKA- Progress note, 12/07, ABBY ROSALES MD TREATMENTS: - Ancef.IV- SEP, 11/19 (This form is maintained as a part of the permanent medical record) 2014 [employer] All Rights Reserved [email or web address]
== END 2019-12-12 12:28 | DRG 300 ==
LOC: NAV ACUTE 15:19
PROVIDERS: ADMIT Internal Medicine; ATTEND Internal Medicine
DX: E11.51 Type 2 diabetes mellitus with diabetic peripheral angiopathy without gangrene (principal); R78.81 Bacteremia; E11.621 Type 2 diabetes mellitus with foot ulcer; I10 Essential (primary) hypertension; E78.5 Hyperlipidemia, unspecified; I73.9 Peripheral vascular disease, unspecified; R53.81 Other malaise; E11.40 Type 2 diabetes mellitus with diabetic neuropathy, unspecified; M17.11 Unilateral primary osteoarthritis, right knee; D63.1 Anemia in chronic kidney disease; B95.62 Methicillin resistant Staphylococcus aureus infection as the cause of diseases classified elsewhere; L89.612 Pressure ulcer of right heel, stage 2; Z88.1 Allergy status to other antibiotic agents; Z89.512 Acquired absence of left leg below knee; Z79.4 Long term (current) use of insulin
CPT/HCPCS: 36416; 80053; 82607; 82728; 82746; 83605; 85007; 85025; 85027; 87040; 87635; J0690; J1815; J2001; J2960; J3490; U0003